=== PATIENT | male | born 1975 | race African-American/Black ===

== ENCOUNTER 2017-07-07 21:41 | Emergency (ER) | payer MEDICAID, OTHER ==
[~2017-07-07] VITALS: Ht 193 cm; Wt 104.0 kg
[2017-07-07 21:43] VITALS: BP 124/74
[2017-07-07] MEDS ORDERED: IBUPROFEN 600MG TABLET PO ONE (22:30)
== END 2017-07-07 23:30 | disposition left against medical advice (07) ==
LOC: ER 22:44
DX: M47.897 Other spondylosis, lumbosacral region (principal); M54.2 Cervicalgia; M54.89 Other dorsalgia; V48.4XXA Person boarding or alighting a car injured in noncollision transport accident, initial encounter; W22.8XXA Striking against or struck by other objects, initial encounter; Y93.89 Activity, other specified; Y92.9 Unspecified place or not applicable; R03.0 Elevated blood-pressure reading, without diagnosis of hypertension; F12.90 Cannabis use, unspecified, uncomplicated
CPT/HCPCS: 72040; 72100; 99284

== ENCOUNTER 2017-07-20 12:10 | Emergency (ER) | payer OTHER ==
[~2017-07-20] VITALS: Ht 193 cm; Wt 104.0 kg
[2017-07-20 14:05] VITALS: BP 127/56
== END 2017-07-20 16:10 | disposition home or self-care (01) ==
LOC: ER 12:10
DX: T16.1XXA Foreign body in right ear, initial encounter (principal); F12.10 Cannabis abuse, uncomplicated; F17.200 Nicotine dependence, unspecified, uncomplicated; W45.8XXA Other foreign body or object entering through skin, initial encounter; Y93.89 Activity, other specified; Y92.89 Other specified places as the place of occurrence of the external cause; Y99.8 Other external cause status
CPT/HCPCS: 99284; Z7610

== ENCOUNTER 2023-10-09 10:10 | Emergency (ER) | payer OTHER ==
[~2023-10-09] VITALS: Ht 185.4 cm; Wt 105.0 kg
[2023-10-09 12:15] VITALS: BP 135/82; PULSE 85; RESP 16
== END 2023-10-09 12:55 ==
LOC: ER 10:51
DX: R09.81 Nasal congestion (principal); F12.10 Cannabis abuse, uncomplicated; Z20.822 Contact with and (suspected) exposure to COVID-19
CPT/HCPCS: 99283; 87426; C9803